=== PATIENT | male | born 1960 | race African-American/Black ===

== ENCOUNTER 2017-09-16 00:47 | Emergency (ER) | payer SELFPAY ==
[~2017-09-16] VITALS: Ht 180.3 cm; Wt 104.3 kg
[2017-09-16] MEDS ORDERED: METF500 PO ×2 (01:19→03:09)
[2017-09-16] MEDS ORDERED: LISI5 PO (01:20)
[2017-09-16] MEDS ORDERED: ESTROGEN PO (01:21)
[2017-09-16] MEDS ORDERED: SPIR25 PO (01:21)
[2017-09-16 01:55] LABS: Chloride (POC) 99 mmol/L (98-108); Creatinine (POC) 0.9 mg/dL (0.8-1.3); Glucose (ISTAT POC) 307 mg/dL (70-99); Hemoglobin (POC) 13.3 g/dL (13.5-17.5); Potassium (POC) 4.1 mmol/L (3.5-5.5); Sodium (POC) 136 mmol/L (135-148); Total CO2 (POC) 27 mmol/L (21-32)
[2017-09-16] MEDS ORDERED: Aldactone50 MG PO (03:09)
[2017-09-16] MEDS ORDERED: Prinivil5 MG PO (03:09)
== END 2017-09-16 06:52 | disposition home or self-care (01) ==
LOC: ER 00:47
PROVIDERS: Emergency Medicine
DX: Z76.0 Encounter for issue of repeat prescription (principal); E11.40 Type 2 diabetes mellitus with diabetic neuropathy, unspecified; I10 Essential (primary) hypertension; Z90.49 Acquired absence of other specified parts of digestive tract; Z59.0 Homelessness; Z79.84 Long term (current) use of oral hypoglycemic drugs; Z79.899 Other long term (current) drug therapy
CPT/HCPCS: 80047; 81000; 85014; 93005; 93010; 99283